=== PATIENT | female | born 1975 | race Caucasian/White ===

== ENCOUNTER → 2021-08-18 09:48 | Outpatient (BNVA) | payer BC, SELFPAY | PROVIDERS: Visit Provider Nurse Practitioner Family | DX: R10.9 Unspecified abdominal pain (principal) | CPT/HCPCS: 81000 ==

== ENCOUNTER → 2022-06-23 14:51 | Outpatient (BNVA) | payer BC, SELFPAY | PROVIDERS: Visit Provider Nurse Practitioner Family | DX: R63.4 Abnormal weight loss (principal); L65.9 Nonscarring hair loss, unspecified; E53.8 Deficiency of other specified B group vitamins; E55.9 Vitamin D deficiency, unspecified; E89.40 Asymptomatic postprocedural ovarian failure; Z90.710 Acquired absence of both cervix and uterus | CPT/HCPCS: 80053; 82306; 82607; 82672; 83001; 83002; 84144; 84443; 85025 ==

== ENCOUNTER → 2022-07-25 08:54 | Outpatient (BNVA) | payer BC, SELFPAY | PROVIDERS: PCP Nurse Practitioner Family; Visit Provider Nurse Practitioner Family | DX: L65.9 Nonscarring hair loss, unspecified (principal); R63.4 Abnormal weight loss; D72.9 Disorder of white blood cells, unspecified; R53.83 Other fatigue; Z83.49 Family history of other endocrine, nutritional and metabolic diseases | CPT/HCPCS: 84439; 84480; 85651; 86140 ==